=== PATIENT | female | born 1990 | race Caucasian/White ===

== ENCOUNTER 2023-10-13 16:24 | Emergency (ER) | payer BC ==
[2023-10-13 16:45] VITALS: BP 127/85; PULSE 71; RESP 18; TEMP 98.2; BMI 16.5
[2023-10-13] MEDS ORDERED: ACETAMINOPHEN 500 MG TABLET (FP) ONE (17:52)
[2023-10-13] MEDS ORDERED: ACETAMINOPHEN 650 MG/20.3 ML ORAL SOLUTION (CUPS) ONE (17:57)
[2023-10-13] MEDS: ACETAMINOPHEN 500 MG TABLET (FP) PO ONE (17:57)
[2023-10-13] MEDS: ACETAMINOPHEN 650 MG/20.3 ML ORAL SOLUTION (CUPS) PO ONE (17:58)
== END 2023-10-13 18:31 | disposition home or self-care (01) ==
LOC: JER 16:24
DX: F41.0 Panic disorder [episodic paroxysmal anxiety] (principal); F43.10 Post-traumatic stress disorder, unspecified; R51.9 Headache, unspecified
CPT/HCPCS: 99283-25

== ENCOUNTER 2023-11-11 19:18 | Emergency (ER) | payer BC ==
[2023-11-11 19:22] VITALS: BP 106/71; PULSE 62; RESP 17; TEMP 98.1; BMI 17.4
== END 2023-11-11 20:05 | disposition home or self-care (01) ==
LOC: JERFT 19:18
DX: Z48.02 Encounter for removal of sutures (principal)
CPT/HCPCS: 99281-25

== ENCOUNTER 2024-03-29 15:29 | Emergency (ER) | payer BC ==
[2024-03-29 15:35] VITALS: BMI 17.4
[2024-03-29] MEDS ORDERED: ACETAMINOPHEN INJECTION 100 ML ONE (16:54)
[2024-03-29] MEDS ORDERED: METOCLOPRAMIDE HCL INJECTION 10 MG/2 ML VIAL ONE (16:54)
[2024-03-29] MEDS: ACETAMINOPHEN 1000 MG/100 ML BAG IVPB ONE (17:06)
[2024-03-29] MEDS: METOCLOPRAMIDE HCL INJECTION 10 MG/2 ML VIAL IVPB ONE (17:08)
[2024-03-29] MEDS: METOCLOPRAMIDE HCL INJECTION 10 MG/2 ML VIAL IM ONE (17:08)
[2024-03-29 17:21] LABS: POTASSIUM 4.5 mmol/L (3.5-5.1)
[2024-03-29 17:24] LABS: ALBUMIN 4.5 g/dl (3.4-5.0); BLOOD UREA NITROGEN 4.4 mg/dL (7-18); CALCIUM 9.3 mg/dL (8.5-10.1)
[2024-03-29 17:27] LABS: CREATININE 0.9 mg/dL (0.55-1.3)
[2024-03-29 17:29] LABS: BILIRUBIN,TOTAL 0.6 mg/dL (0.2-1); TOT PROT 7.8 g/dl (6.4-8.2)
[2024-03-29 18:04] VITALS: BP 103/64; PULSE 65; RESP 17; TEMP 98.4
[2024-03-29 20:05] LABS: HIV INTERPRETATION NEGATIVE (NEGATIVE)
== END 2024-03-29 18:11 | disposition home or self-care (01) ==
LOC: JER 15:29
PROC: 3E033NZ Introduction of Analgesics, Hypnotics, Sedatives into Peripheral Vein, Percutaneous Approach (ICD-10-PCS; principal; 2024-03-29)
PROC: 3E033GC Introduction of Other Therapeutic Substance into Peripheral Vein, Percutaneous Approach (ICD-10-PCS; 2024-03-29)
DX: G43.909 Migraine, unspecified, not intractable, without status migrainosus (principal); H53.149 Visual discomfort, unspecified
CPT/HCPCS: 36415; 80053; 84703; 86803; 87389; 99284-25; J0131